=== PATIENT | female | born 2000 | race Caucasian/White ===

== ENCOUNTER → 2021-05-06 12:15 | Outpatient (BNVA) | payer BC, SELFPAY | PROVIDERS: Visit Provider Registered Nurse Neonatal Intensive Care | DX: R05.9 Cough, unspecified (principal) | CPT/HCPCS: 87400 ==

== ENCOUNTER → 2021-09-09 13:30 | Outpatient (BNVA) | payer MEDICAID, SELFPAY | PROVIDERS: Visit Provider Nurse Practitioner Women's Health | DX: N92.6 Irregular menstruation, unspecified (principal) | CPT/HCPCS: 81025 ==

== ENCOUNTER → 2021-10-16 14:02 | Outpatient (BNVA) | payer MEDICAID, SELFPAY | PROVIDERS: Visit Provider Obstetrics & Gynecology | DX: Z34.00 Encounter for supervision of normal first pregnancy, unspecified trimester (principal); G43.909 Migraine, unspecified, not intractable, without status migrainosus | CPT/HCPCS: 80307; 81000; 87086 ==

== ENCOUNTER → 2021-10-29 10:57 | Outpatient (BNVA) | payer MEDICAID, SELFPAY | PROVIDERS: Visit Provider Obstetrics & Gynecology | DX: Z34.00 Encounter for supervision of normal first pregnancy, unspecified trimester (principal) | CPT/HCPCS: 81000; 84443; 85027; 86592; 86762; 86803; 86850; 86900; 87340; 87491; 87591; 87661; 87806 ==

== ENCOUNTER → 2022-01-16 15:01 | Outpatient (BNVA) | payer MEDICAID, SELFPAY | PROVIDERS: Visit Provider Obstetrics & Gynecology | DX: Z34.00 Encounter for supervision of normal first pregnancy, unspecified trimester (principal); Z3A.00 Weeks of gestation of pregnancy not specified; R82.90 Unspecified abnormal findings in urine | CPT/HCPCS: 87077; 87086; 87184 ==

== ENCOUNTER → 2022-02-02 10:00 | Outpatient (BNVA) | payer MEDICAID, SELFPAY | PROVIDERS: Visit Provider Obstetrics & Gynecology | DX: Z34.00 Encounter for supervision of normal first pregnancy, unspecified trimester (principal) | CPT/HCPCS: 82950 ==

== ENCOUNTER → 2022-02-18 13:50 | Outpatient (BNVA) | payer MEDICAID, SELFPAY | PROVIDERS: Visit Provider Obstetrics & Gynecology | DX: Z34.00 Encounter for supervision of normal first pregnancy, unspecified trimester (principal) | CPT/HCPCS: 81000; 87086 ==

== ENCOUNTER → 2022-03-04 10:21 | Outpatient (BNVA) | payer MEDICAID, SELFPAY | PROVIDERS: Visit Provider Obstetrics & Gynecology | DX: Z34.00 Encounter for supervision of normal first pregnancy, unspecified trimester (principal) | CPT/HCPCS: 81000; 85025; 87086 ==

== ENCOUNTER 2022-03-19 13:10 | Inpatient (IN) | payer MEDICAID, SELFPAY ==
[2022-03-19] VITALS (16 sets, daily range): BP systolic 133–152; BP diastolic 76–99; PULSE 69–96; RESP 14–17; TEMP 36.7; BMI 38.5
[2022-03-19 12:32] LABS: Basophils % 0.2 %; Eosinophils # 0.1 10^3/uL (0.0-0.8); Eosinophils % 0.5 %; Hematocrit 33.4 % (37.0-47.0); Hemoglobin 10.4 g/dL (11.5-15.3); Lymphocytes # 1.9 10^3/uL (0.8-4.8); Lymphocytes % 19.5 %; Mean Corpuscular HGB Conc 31.1 g/dL (30.0-36.0); Mean Corpuscular Hemoglobin 26.1 pg (28.0-34.0); Mean Corpuscular Volume 83.7 fl (81-99); Mean Platelet Volume 11.9 fL (7.4-10.4); Monocytes # 0.5 10^3/uL (0.2-0.9); Monocytes % 5.4 %; Neutrophils # 7.04 10^3/uL (1.8-7.7); Neutrophils % 74.2 %; Nucleated Red Blood Cells % 0 %; Platelet Count 284 10^3/cmm (130-400); Red Blood Count 3.99 10^6/uL (4.1-5.3); Red Cell Distribution Width 14.1 % (12.1-15.1); White Blood Count 9.5 10^3/uL (4.0-10.0)
[2022-03-19 12:51] LABS: Alanine Aminotransferase 7 U/L (0-33); Albumin Level 3.3 g/dL (3.5-5.2); Alkaline Phosphatase 80 U/L (35-105); Anion Gap 13.6 (5-19); Aspartate Amino Transferase 27 U/L (0-32); Blood Urea Nitrogen 8 mg/dL (6-20); Calcium 8.6 mg/dL (8.5-10.5); Carbon Dioxide 21 mmol/L (22-29); Chloride 103 mmol/L (98-107); Globulin 2.9 g/dL (1.3-4.6); Glomerular Filtration Rate 155.7 mL/min (90-130); Glucose 114 mg/dL (65-115); Osmolality Calculated 275 mOsm/kg (285-295); Potassium 4.6 mmol/L (3.5-5.1); Sodium 133 mmol/L (136-145); Total Bilirubin 0.2 mg/dL (0.15-1.2); Total Protein 6.2 g/dL (6.6-8.7); Uric Acid 4.8 mg/dL (2.4-5.7)
[2022-03-19 13:01] LABS: Urine Creatinine 299 mg/dL (28-217)
[2022-03-19 13:02] LABS: UPRO/UCREAT Ratio 0.45 mg/mg CR; Urine Protein Random 135 mg/dL
[2022-03-19 13:12] LABS: Bilirubin Urine Neg (Negative); Blood Urine Neg (Negative); Glucose Urine UA Norm (Normal); Ketones Urine 1+ (Negative); Leukocyte Esterase Urine Trace (Negative); Nitrate Urine Negative (Negative); Protein Urine 2+ (Negative); Urine Appearance Hazy (CLEAR); Urine Color Yellow (Yellow); Urobilinogen Urine Norm (Negative); pH Urine 5 (5-7)
[2022-03-19 13:13] LABS: Add Urine Microscopic? YES
[2022-03-19 13:14] LABS: RBC Urine 0-4 /hpf (0-2)
[2022-03-19 13:15] LABS: Bacteria Urine 2+ /hpf; Mucus Urine 2+ /hpf
[2022-03-19 13:16] LABS: Hyaline Casts Urine 0-4 /lpf
[2022-03-19 13:17] LABS: Coarse Granular Casts Urine 0-4 /lpf
[2022-03-19 13:18] LABS: Add Urine Culture? No
[2022-03-19] MEDS: lactated ringers 1,000 ML 999 ML IV (13:52)
[2022-03-19] MEDS: betamethasone susp 6 mg/mL 5 mL 12 MG IM (13:55)
--- NOTE | 2022-03-19 14:57 | PM.OPHPUD ---
Labor & Delivery H&P Update Date of Procedure: March 19, 2022 Date H&P Performed: 03/19/22 H&P update information: I have reviewed H&P completed within last 30 days, I have examined patient prior to procedure and Changes to prior documentation as noted here Changes to previous documentation: The patient had mildly elevated blood pressures in the clinic. She was sent to labor and delivery. urine/protein creatinine ratio is elevated at 0.45. All other labs are normal. The patient will be admitted for steroids, blood pressure monitoring and monitoring. Plan to repeat labs in the morning. She doesn't meet the criteria for severe symptoms. Admission Diagnosis: Related Problem List Diagnoses (1) Elevated blood pressure reading: betamethasone today and repeat in 24 hours monitor blood pressure will reassess in AM (2) Proteinuria affecting :
[2022-03-19] MEDS: dextrose 5%-lactated ringers 1,000 ML 100 ML IV (15:00)
[2022-03-19] MEDS: acetaminophen 325 mg Tablet 650 MG PO (19:50)
[2022-03-20] VITALS (57 sets, daily range): BP systolic 129–166; BP diastolic 73–96; PULSE 75–99; RESP 14–17; TEMP 36.9
[2022-03-20] MEDS: dextrose 5%-lactated ringers 1,000 ML 100 ML IV ×2 (01:01→13:07)
[2022-03-20 05:09] LABS: Hematocrit 31.4 % (37.0-47.0); Hemoglobin 9.6 g/dL (11.5-15.3); Lymphocytes # 0.9 10^3/uL (0.8-4.8); Lymphocytes % 9.5 %; Mean Corpuscular HGB Conc 30.6 g/dL (30.0-36.0); Mean Corpuscular Hemoglobin 25.5 pg (28.0-34.0); Mean Corpuscular Volume 83.5 fl (81-99); Mean Platelet Volume 11.9 fL (7.4-10.4); Monocytes # 0.2 10^3/uL (0.2-0.9); Monocytes % 2.4 %; Neutrophils # 8.35 10^3/uL (1.8-7.7); Neutrophils % 87.4 %; Nucleated Red Blood Cells % 0 %; Platelet Count 252 10^3/cmm (130-400); Red Blood Count 3.76 10^6/uL (4.1-5.3); Red Cell Distribution Width 14.1 % (12.1-15.1); White Blood Count 9.6 10^3/uL (4.0-10.0)
[2022-03-20 05:30] LABS: Alanine Aminotransferase < 5 U/L (0-33); Albumin Level 3.1 g/dL (3.5-5.2); Alkaline Phosphatase 72 U/L (35-105); Anion Gap 17.3 (5-19); Aspartate Amino Transferase 10 U/L (0-32); Blood Urea Nitrogen 10 mg/dL (6-20); Calcium 8.8 mg/dL (8.5-10.5); Carbon Dioxide 18 mmol/L (22-29); Chloride 104 mmol/L (98-107); Globulin 2.8 g/dL (1.3-4.6); Glomerular Filtration Rate 155.7 mL/min (90-130); Glucose 159 mg/dL (65-115); Osmolality Calculated 282 mOsm/kg (285-295); Potassium 4.3 mmol/L (3.5-5.1); Sodium 135 mmol/L (136-145); Total Bilirubin 0.2 mg/dL (0.15-1.2); Total Protein 5.9 g/dL (6.6-8.7); Uric Acid 4.7 mg/dL (2.4-5.7)
[2022-03-20 05:31] LABS: Urine Creatinine 154 mg/dL (28-217)
[2022-03-20 05:49] LABS: UPRO/UCREAT Ratio 1.96 mg/mg CR; Urine Protein Random 302 mg/dL
[2022-03-20 06:02] LABS: Add Urine Microscopic? YES; Bilirubin Urine Neg (Negative); Blood Urine Neg (Negative); Glucose Urine UA Trace (Normal); Ketones Urine Negative (Negative); Leukocyte Esterase Urine Negative (Negative); Nitrate Urine Negative (Negative); Protein Urine 3+ (Negative); RBC Urine 0-4 /hpf (0-2); Specific Gravity, Urine 1.015 (1.005-1.030); Squamous Epithelial Cell Urine 0-4 /hpf (0-5); Urine Appearance Clear (CLEAR); Urine Color Yellow (Yellow); Urobilinogen Urine Norm (Negative); WBC Urine 0-4 /hpf (0-5); pH Urine 7 (5-7)
[2022-03-20 06:03] LABS: Add Urine Culture? No; Bacteria Urine 1+ /hpf; Mucus Urine 2+ /hpf
[2022-03-20] MEDS: ampicillin 2,000 MG in sodium chloride 0.9% (plus) 50 ML 100 MG IV (09:18)
[2022-03-20] MEDS: magnesium sulfate premix 4 GM/100 ML PREMIX IV (09:19)
[2022-03-20] MEDS: magnesium sulfate premix 20 GM/500 ML BAG IV ×2 (09:38→19:22)
[2022-03-20] MEDS: miSOPROStol 100 mcg tablet 25 MCG VAGINAL ×3 (10:02→21:02)
[2022-03-20] MEDS: betamethasone susp 6 mg/mL 5 mL 12 MG IM (13:28)
[2022-03-20] MEDS: ampicillin 1,000 MG in sodium chloride 0.9% (plus) 50 ML 100 MG IV ×3 (13:28→21:34)
[2022-03-20 17:14] LABS: Magnesium Level (OB Only) 4.6 mg/dL (5.0-7.5)
--- NOTE | 2022-03-20 18:53 | P.PN_ITS ---
Subjective Subjective: Emely is a 22 y/o @ 35.4 weeks by LMP consistent with 13-week ultrasound with a due date of 04/20/2022. Her is complicated by preeclampsia with intermittent severe features, anemia. The patient currently feels well overall. She has a mild headache but no significant nausea or flashes of light currently. She denies any chest pains and shortness of breath. She has had no leakage of fluid or vaginal bleeding. Vitals/I&O/Wt Last Vital Signs Temp 98.5 F 03/20/22 17:45 Pulse 90 03/20/22 18:36 Resp 17 03/20/22 17:45 BP 143/84 03/20/22 18:36 O2 Del Method 03/20/22 17:45 03/20/22 03/20/22 03/20/22 06:59 14:59 22:59 Intake Total 1000 / 2000 1000 / 1000 Output Total 340 / 340 293 / 633 Balance 1000 / 2000 660 / 660 -293 / 367 Weight last 48 hrs Weight 211 lb Physical Exam Narrative: General: Alert and oriented x3 Eyes: Pupils equal round and reactive to light and accommodation Mouth: Mucous membranes moist, pharynx non-erythematous Cardiac: Regular rate and rhythm without murmurs Lungs: Clear to auscultation bilaterally without wheezes, crackles or rhonchi Abdomen: Soft, non-tender, fundus consistent with gestational age Extremities: +3 pitting edema in the bilateral lower extremities. Very brisk deep tendon reflexes in the lower extremities. Urinary Catheter Management: Latham: Cath Placed During This Visit: yes Reason for Continuing Indwelling Catheter: Accurate Measurement of Urinary Output in Critically Ill Patients Urinary Catheter Date of Insertion: 03/20/22 Urinary Catheter Time of Insertion: 10:10 Data 03/20/22 04:55 03/20/22 04:55 A&P Assessment and plan (1) Severe preeclampsia: The patient's blood pressures are currently in the 140s over 80s. She is on IV magnesium at 2 g/h. Her reflexes continue to be very brisk. She has a mild h eadache but does not have other flashes of light or significant nausea at this point. I took over for the patient in the interim and Dr. Ware will take over this evening. The patient has received 2 doses of Cytotec. Currently her contractions are every 2 to 6 minutes. heart tones are in the mid 130s with moderate variability good accelerations with a category 1 tracing. The patient has received 2 doses of betamethasone. The patient is GBS unknown and has been started on ampicillin for prophylaxis. We will employ the antihypertensive protocol if her pressures become severe. She had one in the 160s systolic while having a blood draw that improved on its own. (2) Supervision of high risk , unspecified, third trimester: Upon review of the chart, it appears that the ultrasound she had at 7 weeks possibly did not have an accurate crown-rump length. The follow-up ultrasound at 13 weeks was noted to be the dating ultrasound. It was 8 days different than the LMP which would not be a significant difference so dating is currently by the LMP of 07/14/21. This gives a due date of April 20, 2022 placing the patient at 35.4 weeks gestation today. Attestations Medical Necessity Statement*: The patient will be here for greater than 2 midnights due to routine intrapartum and management of labor and delivery. Coding Level of Care Code Acute Code for Chg Fwd Diagnoses Severe preeclampsia O14.10 Supervision of high risk , unspecified, third trimester O09.93
[2022-03-20 22:22] LABS: Magnesium Level (OB Only) 5.9 mg/dL (5.0-7.5)
[2022-03-21] VITALS (96 sets, daily range): BP systolic 126–167; BP diastolic 67–93; PULSE 73–116; RESP 16–18; TEMP 36.8–36.9; O2SAT 92–100
[2022-03-21] MEDS: ampicillin 1,000 MG in sodium chloride 0.9% (plus) 50 ML 100 MG IV ×2 (01:03→05:40)
[2022-03-21] MEDS: magnesium sulfate premix 20 GM/500 ML BAG IV (04:21)
[2022-03-21] MEDS: dextrose 5%-lactated ringers 1,000 ML 125 ML IV ×2 (04:22→17:58)
[2022-03-21] MEDS: fentaNYL 50 mcg/mL INJ 2mL IVP ×2 (04:28→05:56)
--- NOTE | 2022-03-21 04:34 | P.PN_ITS ---
UNDERWRITING SERVICE REPRESENTATIVE Subjective Subjective: Interval history: March 21, 2022, 404 Patient admitted for IOL at 35 w 4 d for preE Had already received 4 doses of cytotec Feeling mild-moderate UCs No c/o.? no headaches, blurry vision Feeling mild weakness from MgSO4 On 2 gms of MgSO4 Exam:??? awake, alert, appropriate ? BPs?? 141 / 83 ? Urine output adequate ? Cervix:?? 2 cm / 75% / -2 / posterior ? AROM? -? clear fluid ? IUPC placed heart tracing? -? reassuring.? + good variability A/P: 35 w 5 d Admitted for IOL for preE Plan start Pitocin augmentation Labor: Station: -3 Amniotic Membrane Status: Ruptured Monitor Mode: External Contraction Pattern: Irregular Status: Category I Vitals/I&O/Wt Last Vital Signs Temp 98.5 F 03/20/22 17:45 Pulse 97 03/21/22 04:17 Resp 16 03/21/22 04:28 BP 157/90 03/21/22 04:17 O2 Del Method 03/20/22 17:45 03/20/22 03/20/22 03/21/22 14:59 22:59 06:59 Intake Total 1000 / 1000 100 / 1100 449.167 / 1549.167 Output Total 340 / 340 823 / 1163 255 / 1418 Balance 660 / 660 -723 / -63 194.167 / 131.167 Weight last 48 hrs Weight 211 lb Physical Exam Urinary Catheter Management: Latham: Cath Placed During This Visit: yes Reason for Continuing Indwelling Catheter: Accurate Measurement of Urinary Output in Critically Ill Patients Urinary Catheter Date of Insertion: 03/20/22 Urinary Catheter Time of Insertion: 10:10 Data 03/20/22 04:55 03/20/22 04:55 Attestations Medical Necessity Statement*: patient admitted for induction of labor Time Spent in Patient Care: 15 minutes Coding Level of Care Code Acute Code for Chg Fwd
--- NOTE | 2022-03-21 07:32 | PM.DELIVERY ---
Delivery Note: Date of delivery: March 21, 2022 Pre-delivery diagnoses: 35 w 5 d pre-eclampsia induction of labor Post-delivery diagnoses: same, delivered Procedure: vaginal delivery Delivering Physician: Paul Ware M.D. Findings: March 21, 2022, 07 DELIVERY NOTE , female Normal placenta and cord Cord gases and blood obtained Small second-degree perineal laceration repaired Lidocaine 1% 8 cc given subcutaneously No complications EBL:? 300 cc Post-Delivery Status: Good History History History 1 Term Miscarriages/Ectopic Living Children A&P Assessment and plan (1) Vaginal delivery: Plan s/p care Coding Level of Care Code Acute Code for Chg Fwd Diagnoses Vaginal delivery O80
[2022-03-21] MEDS: ibuprofen 800 mg tablet PO ×2 (09:15→15:44)
[2022-03-21] MEDS: prenatal vitamin Capsule 1 CAP PO (09:16)
[2022-03-21] MEDS: docusate sodium 100 mg Capsule PO ×2 (09:16→17:56)
[2022-03-21] MEDS: benzocaine-menthol 78 gm Canister 1 SPRAY TOPICAL (09:22)
[2022-03-21 23:32] LABS: Hematocrit 27.6 % (37.0-47.0); Hemoglobin 8.5 g/dL (11.5-15.3); Mean Corpuscular HGB Conc 30.8 g/dL (30.0-36.0); Mean Corpuscular Hemoglobin 25.9 pg (28.0-34.0); Mean Corpuscular Volume 84.1 fl (81-99); Mean Platelet Volume 11.8 fL (7.4-10.4); Platelet Count 265 10^3/cmm (130-400); Red Blood Count 3.28 10^6/uL (4.1-5.3); Red Cell Distribution Width 14.6 % (12.1-15.1); White Blood Count 12.7 10^3/uL (4.0-10.0)
[2022-03-22] VITALS (16 sets, daily range): BP systolic 127–163; BP diastolic 67–84; PULSE 81–107; RESP 15–16; TEMP 36.2–37.2
[2022-03-22] MEDS: magnesium sulfate premix 20 GM/500 ML BAG IV (00:47)
[2022-03-22] MEDS: ibuprofen 800 mg tablet PO ×3 (10:11→21:03)
[2022-03-22] MEDS: docusate sodium 100 mg Capsule PO ×2 (10:11→17:47)
[2022-03-22] MEDS: prenatal vitamin Capsule 1 CAP PO (10:11)
[2022-03-23 01:56] LABS: Glucose Point of Care 58 mg/dL (70-110)
[2022-03-23 04:00] VITALS: BP 138/79; BP 153/95; PULSE 75; PULSE 82
[2022-03-23 09:28] VITALS: BP 138/79; PULSE 101; TEMP 36.1
[2022-03-23] MEDS: prenatal vitamin Capsule 1 CAP PO (09:29)
[2022-03-23] MEDS: docusate sodium 100 mg Capsule PO (09:29)
[2022-03-23] MEDS: ibuprofen 800 mg tablet PO (09:29)
--- NOTE | 2022-03-23 12:00 | P.PN_ITS ---
DATA REDUCTION TECHNICIAN Subjective Subjective: Interval history: March 22, 2022, 1205 No c/o No pain, bleeding Normal lochia Eating, voiding, ambulating well Exam:? afebrile, VS normal ? Abd:? soft, nontender.? Fundus firm ? Ext:? normal A/P: PPD? #1? Doing well Continue care Labor: Station: 0 Amniotic Membrane Status: Ruptured Monitor Mode: Internal (IUPC) Contraction Pattern: Regular Uterine Tone Measurement: 15 Status: Category I Vitals/I&O/Wt Last Vital Signs Temp 97.0 F L 03/23/22 09:28 Pulse 101 H 03/23/22 09:28 Resp 15 03/22/22 22:34 BP 138/79 03/23/22 09:28 Pulse Ox 100 03/21/22 19:30 O2 Del Method 03/21/22 19:30 Physical Exam Urinary Catheter Management: [place]: Cath Placed During This Visit: yes, but has since been removed by the nurse Reason for Continuing Indwelling Catheter: Decision to DC Catheter Urinary Catheter Date of Insertion: 03/20/22 Urinary Catheter Time of Insertion: 10:10 Date Urinary Catheter Removed: 03/22/22 Time Urinary Catheter Discontinued: 09:45 Latham Latex: Cath Placed During This Visit: yes, but has since been removed by the nurse Reason for Continuing Indwelling Catheter: Decision to DC Catheter Urinary Catheter Date of Insertion: 03/21/22 Urinary Catheter Time of Insertion: 08:00 Date Urinary Catheter Removed: 03/22/22 Time Urinary Catheter Discontinued: 09:45 Data 03/21/22 23:20 03/20/22 04:55 A&P Assessment and plan (1) Vaginal delivery: Attestations Medical Necessity Statement*: patient s/p , care Coding Level of Care Code Acute Code for Chg Fwd Diagnoses Vaginal delivery O80
--- NOTE | 2022-03-23 12:02 | P.PN_ITS ---
MARKETING MANAGER HEALTH COMMUNICATIONS Subjective Subjective: Interval history: March 23, 2022, 1105 No c/o No pain, bleeding Eating, voiding, ambulating well Exam:? afebrile, VS? normal ?Abd:? soft, nontender ? Ext:? normal A/P: PPD #2 Doing well Plan discharge home Instructions/precautions given Continue FeSO4 1-2 tab PO daily f/u with Dr. Mccracken in two weeks Labor: Station: 0 Amniotic Membrane Status: Ruptured Monitor Mode: Internal (IUPC) Contraction Pattern: Regular Uterine Tone Measurement: 15 Status: Category I Vitals/I&O/Wt Last Vital Signs Temp 97.0 F L 03/23/22 09:28 Pulse 101 H 03/23/22 09:28 Resp 15 03/22/22 22:34 BP 138/79 03/23/22 09:28 Pulse Ox 100 03/21/22 19:30 O2 Del Method 03/21/22 19:30 Physical Exam Urinary Catheter Management: L[place]: Cath Placed During This Visit: yes, but has since been removed by the nurse Reason for Continuing Indwelling Catheter: Decision to DC Catheter Urinary Catheter Date of Insertion: 03/20/22 Urinary Catheter Time of Insertion: 10:10 Date Urinary Catheter Removed: 03/22/22 Time Urinary Catheter Discontinued: 09:45 L[place] Latex: Cath Placed During This Visit: yes, but has since been removed by the nurse Reason for Continuing Indwelling Catheter: Decision to DC Catheter Urinary Catheter Date of Insertion: 03/21/22 Urinary Catheter Time of Insertion: 08:00 Date Urinary Catheter Removed: 03/22/22 Time Urinary Catheter Discontinued: 09:45 Data 03/21/22 23:20 03/20/22 04:55 A&P Assessment and plan (1) Vaginal delivery: Attestations Medical Necessity Statement*: patient is PPD #2 , plan discharge home today Coding Level of Care Code Acute Code for Chg Fwd Diagnoses Vaginal delivery O80
--- NOTE | 2022-03-23 12:04 | P.DS_ITS ---
Discharge Providers CUSTOMER CONTACT REPRESENTATIVE Date of Admission: 03/20/22 07:52 Date of Discharge: 03/23/22 Attending Provider at Admission: Kristina Mccracken MD Attending Provider at Discharge: Kristina Mccracken MD Primary CUSTOMER CONTACT REPRESENTATIVE: Shyam Mccracken MD Primary Care Provider: DOCTOR NOT ON STAFF Diagnoses at Discharge Discharge Diagnosis (1) Vaginal delivery: Status: Acute Reason for Visit Reason for Visit: Increased BP in office, PRE E workup Hospital Course Hospital Course patient with , small second-degree perineal laceration repair. Did well without any complications. Information Peripartum Data: Delivery Method: Vaginal Physical Exam Urinary Catheter Management: L[place]: Cath Placed During This Visit: yes, but has since been removed by the nurse Reason for Continuing Indwelling Catheter: Decision to DC Catheter Urinary Catheter Date of Insertion: 03/20/22 Urinary Catheter Time of Insertion: 10:10 Date Urinary Catheter Removed: 03/22/22 Time Urinary Catheter Discontinued: 09:45 [place] Latex: Cath Placed During This Visit: yes, but has since been removed by the nurse Reason for Continuing Indwelling Catheter: Decision to DC Catheter Urinary Catheter Date of Insertion: 03/21/22 Urinary Catheter Time of Insertion: 08:00 Date Urinary Catheter Removed: 03/22/22 Time Urinary Catheter Discontinued: 09:45 History History History 1 Term Miscarriages/Ectopic Living Children Discharge Data Studies Completed and Pending Laboratory Results WBC 12.7 10^3/uL (4.0-10.0) H 03/21/22 23:20 RBC 3.28 10^6/uL (4.1-5.3) L 03/21/22 23:20 Hgb 8.5 g/dL (11.5-15.3) L 03/21/22 23:20 Hct 27.6 % (37.0-47.0) L 03/21/22 23:20 MCV 84.1 fl (81-99) 03/21/22 23:20 MCH 25.9 pg (28.0-34.0) L 03/21/22 23:20 MCHC 30.8 g/dL (30.0-36.0) 03/21/22 23:20 RDW 14.6 % (12.1-15.1) 03/21/22 23:20 Plt Count 265 10^3/cmm (130-400) 03/21/22 23:20 MPV 11.8 fL (7.4-10.4) H 03/21/22 23:20 Neut % (Auto) 87.4 % 03/20/22 04:55 Lymph % (Auto) 9.5 % 03/20/22 04:55 [place] % (Auto) 2.4 % 03/20/22 04:55 Eos % (Auto) 0.0 % 03/20/22 04:55 Baso % (Auto) 0.0 % 03/20/22 04:55 Neut # (Auto) 8.35 10^3/uL (1.8-7.7) H 03/20/22 04:55 Lymph # (Auto) 0.9 10^3/uL (0.8-4.8) 03/20/22 04:55 [place] # (Auto) 0.2 10^3/uL (0.2-0.9) 03/20/22 04:55 Eos # (Auto) 0.0 10^3/uL (0.0-0.8) 03/20/22 04:55 Baso # (Auto) 0.0 10^3/uL (0.0-0.1) 03/20/22 04:55 Nucleated RBC % (auto) 0 % 03/20/22 04:55 Nucleated RBCs # 0.0 /100WBC 03/20/22 04:55 Sodium 135 mmol/L (136-145) L 03/20/22 04:55 Potassium 4.3 mmol/L (3.5-5.1) 03/20/22 04:55 Chloride 104 mmol/L (98-107) 03/20/22 04:55 Carbon Dioxide 18 mmol/L (22-29) L 03/20/22 04:55 Anion Gap 17.3 (5-19) 03/20/22 04:55 BUN 10 mg/dL (6-20) 03/20/22 04:55 Creatinine 0.5 mg/dL (0.5-0.9) 03/20/22 04:55 GFR Calculation 155.7 mL/min (90-130) H 03/20/22 04:55 Glucose 159 mg/dL (65-115) H 03/20/22 04:55 POC Glucose 58 mg/dL (70-110) L 03/23/22 01:45 Calculated Osmolality 282 mOsm/kg (285-295) L 03/20/22 04:55 Uric Acid 4.7 mg/dL (2.4-5.7) 03/20/22 04:55 Calcium 8.8 mg/dL (8.5-10.5) 03/20/22 04:55 Magnesium 5.9 mg/dL (5.0-7.5) 03/20/22 21:50 Total Bilirubin 0.2 mg/dL (0.15-1.2) 03/20/22 04:55 AST 10 U/L (0-32) 03/20/22 04:55 ALT < 5 U/L (0-33) 03/20/22 04:55 Alkaline Phosphatase 72 U/L (35-105) 03/20/22 04:55 Total Protein 5.9 g/dL (6.6-8.7) L 03/20/22 04:55 Albumin 3.1 g/dL (3.5-5.2) L 03/20/22 04:55 Globulin 2.8 g/dL (1.3-4.6) 03/20/22 04:55 Urine Color Yellow (Yellow) 03/20/22 05:00 Urine Appearance Clear (CLEAR) 03/20/22 05:00 Urine pH 7 (5-7) 03/20/22 05:00 Ur Specific [place] 1.015 (1.005-1.030) 03/20/22 05:00 Urine Protein 3+ (Negative) H 03/20/22 05:00 Urine Glucose (UA) Trace (Normal) H 03/20/22 05:00 Urine Ketones Negative (Negative) 03/20/22 05:00 Urine Blood Neg (Negative) 03/20/22 05:00 Urine Nitrate Negative (Negative) 03/20/22 05:00 Urine Bilirubin Neg (Negative) 03/20/22 05:00 Urine Urobilinogen Norm mg/dL (Negative) 03/20/22 05:00 Ur Leukocyte Esterase Negative (Negative) 03/20/22 05:00 Urine RBC 0-4 /hpf (0-2) H 03/20/22 05:00 Urine WBC 0-4 /hpf (0-5) H 03/20/22 05:00 Ur Squamous Epith Cells 0-4 /hpf (0-5) H 03/20/22 05:00 Amorphous Sediment Not Reportable 03/20/22 05:00 Urine Bacteria 1+ /hpf (NONE) H 03/20/22 05:00 Hyaline Casts 0-4 /lpf H 03/19/22 12:05 Coarse Granular Casts 0-4 /lpf H 03/19/22 12:05 Urine Mucus 2+ /hpf 03/20/22 05:00 U Random Total Protein 302 mg/dL 03/20/22 05:00 Urine Creatinine 154 mg/dL (28-217) 03/20/22 05:00 Protein/Creatinin Ratio 1.96 mg/mg CR 03/20/22 05:00 Procedures Performed Induction of Labor Vaginal delivery repair of second-degree perineal laceration Vitals Last Vital Signs Temp 97.0 F L 03/23/22 09:28 Pulse 101 H 03/23/22 09:28 Resp 15 03/22/22 22:34 BP 138/79 03/23/22 09:28 Pulse Ox 100 03/21/22 19:30 O2 Del Method 03/21/22 19:30 Discharge Plan Discharge Patient Disposition: Home Condition: Stable Prescriptions: Continued acetaminophen [Tylenol] 325 mg capsule 325 mg PO QID PRN (Reason: Pain) Gummies 400 mcg-35 mg- 25 mg-5 mg tablet,chewable 1 tab PO DAILY Discontinued atenolol 25 mg tablet 25 mg PO DAILY Qty: 90 3RF Discharge Orders: Discharge Order (Routine); Ordered 03/23/22 Ordered By: Paul Ware Referrals: Kristina Mccracken MD [Physician] - 04/09/22 2:15 pm (* Your 2 week appointment is with Dr. Mccracken on 04/09/2022 at 2:15pm) Discharge Diet: Regular Discharge Activity: Increase activity as tolerated Patient Instructions: Depression (DC), Bleeding (DC), Preeclampsia and Eclampsia After Delivery (GEN), OB Discharge Report, OB Food/Drug Interaction Guide, Opioid Safety, OB Home Care, OB Proud Parent Packet Discharge Attestations CUSTOMER CONTACT REPRESENTATIVE Time Spent in Discharge Care*: less than 30 min Coding Level of Care Code Acute Code for Chg Fwd Diagnoses Vaginal delivery O80
[2022-03-23 12:30] VITALS: BP 148/79; PULSE 84
[2022-03-23 12:31] VITALS: TEMP 36.7
[2022-03-23 12:37] VITALS: BP 148/79; PULSE 84; RESP 16; TEMP 36.7
== END 2022-03-23 12:40 | disposition home or self-care (01) | DRG 807 ==
PROVIDERS: Family Medicine; Obstetrics & Gynecology; Admitting Provider Obstetrics & Gynecology; Visit Provider Obstetrics & Gynecology
DX: O14.14 Severe pre-eclampsia complicating childbirth (principal); Z37.0 Single live birth; O99.02 Anemia complicating childbirth; D64.9 Anemia, unspecified; O70.1 Second degree perineal laceration during delivery; Z3A.35 35 weeks gestation of pregnancy
CPT/HCPCS: 12345; 36415; 36416; 51702; 59025; 59409; 80053; 81001; 82570; 82962; 83735; 84156; 84550; 85025; 85027; 96372; 96374; 96376; 99211; G0378; J0290; J0702; J3010; J3475; J7120; J7121

== ENCOUNTER 2022-03-23 21:01 | Observation (INO) | payer MEDICAID, SELFPAY ==
[2022-03-23] VITALS (16 sets, daily range): BP systolic 136–173; BP diastolic 67–100; PULSE 68–100; RESP 16
[2022-03-23] MEDS: labetalol 5 mg/mL SDV 20mL 20 MG IVP (21:15)
[2022-03-23 21:32] LABS: Alanine Aminotransferase 8 U/L (0-33); Albumin Level 3.1 g/dL (3.5-5.2); Alkaline Phosphatase 59 U/L (35-105); Anion Gap 14.3 (5-19); Aspartate Amino Transferase 11 U/L (0-32); Blood Urea Nitrogen 11 mg/dL (6-20); Calcium 8.2 mg/dL (8.5-10.5); Carbon Dioxide 22 mmol/L (22-29); Chloride 103 mmol/L (98-107); Globulin 2.4 g/dL (1.3-4.6); Glomerular Filtration Rate 155.7 mL/min (90-130); Glucose 84 mg/dL (65-115); Osmolality Calculated 279 mOsm/kg (285-295); Potassium 4.3 mmol/L (3.5-5.1); Sodium 135 mmol/L (136-145); Total Bilirubin 0.2 mg/dL (0.15-1.2); Total Protein 5.5 g/dL (6.6-8.7); Uric Acid 5.3 mg/dL (2.4-5.7)
[2022-03-23 21:35] LABS: Urine Creatinine 17 mg/dL (28-217); Urine Protein Random 6 mg/dL
[2022-03-23 21:38] LABS: Basophils % 0.2 %; Eosinophils # 0.3 10^3/uL (0.0-0.8); Eosinophils % 2.2 %; Hematocrit 26.7 % (37.0-47.0); Hemoglobin 8.1 g/dL (11.5-15.3); Lymphocytes # 2.9 10^3/uL (0.8-4.8); Lymphocytes % 24.9 %; Mean Corpuscular HGB Conc 30.3 g/dL (30.0-36.0); Mean Corpuscular Hemoglobin 25.6 pg (28.0-34.0); Mean Corpuscular Volume 84.2 fl (81-99); Mean Platelet Volume 11.5 fL (7.4-10.4); Monocytes # 0.6 10^3/uL (0.2-0.9); Monocytes % 5.3 %; Neutrophils % 66.9 %; Nucleated Red Blood Cells % 0 %; Platelet Count 251 10^3/cmm (130-400); Red Blood Count 3.17 10^6/uL (4.1-5.3); Red Cell Distribution Width 14.6 % (12.1-15.1); White Blood Count 11.7 10^3/uL (4.0-10.0)
[2022-03-23 21:41] LABS: UPRO/UCREAT Ratio 0.35 mg/mg CR
[2022-03-23] MEDS: labetalol 5 mg/mL SDV 20mL 40 MG IVP (21:50)
[2022-03-23 22:06] LABS: Add Urine Microscopic? YES; Bilirubin Urine Neg (Negative); Blood Urine 2+ (Negative); Glucose Urine UA Norm (Normal); Ketones Urine Negative (Negative); Leukocyte Esterase Urine Negative (Negative); Nitrate Urine Negative (Negative); Protein Urine Neg (Negative); RBC Urine 0-4 /hpf (0-2); Sulfosalicylic Acid Urine Negative (Negative); Urine Appearance Clear (CLEAR); Urine Color Colorless (Yellow); Urobilinogen Urine Norm (Negative); pH Urine 8 (5-7)
[2022-03-23 22:07] LABS: Add Urine Culture? No; Mucus Urine N /hpf; Other Crystals Urine N /hpf; Renal Epithelial Cells Urine N /hpf; Squamous Epithelial Cell Urine 0-4 /hpf (0-5); Uric Acid Crystals Urine N /hpf
[2022-03-24] VITALS (89 sets, daily range): BP systolic 120–199; BP diastolic 58–120; PULSE 68–116; RESP 18; TEMP 36.8
--- NOTE | 2022-03-24 01:27 | PC.NURSE ---
Pt in nursery at this time with baby.
[2022-03-24] MEDS: acetaminophen 500 mg Tablet 1000 MG PO (02:16)
--- NOTE | 2022-03-24 09:18 | PC.NURSE ---
Patient stated BP cuff was slid down over her elbow and wants it retaken
[2022-03-24] MEDS: labetalol 5 mg/mL SDV 20mL 20 MG IVP ×2 (09:49→16:34)
[2022-03-24] MEDS: labetalol 5 mg/mL SDV 20mL 40 MG IVP ×3 (10:10→18:14)
[2022-03-24] MEDS: atenolol 50 mg Tablet 25 MG PO (10:35)
--- NOTE | 2022-03-24 17:57 | PM.PN ---
Subjective Subjective: Mrs. Nino 22 y/o s/p with elevated BP in the severe preeclampsia range. Vitals/I&O/Wt Last Vital Signs Pulse 76 03/24/22 17:36 Resp 16 03/23/22 20:48 BP 170/96 03/24/22 17:36 03/24/22 03/24/22 03/24/22 06:59 14:59 22:59 Intake Total 500 / 500 Balance 500 / 500 Physical Exam Narrative: GA; alert and oriented x 3 HEENT: normal Breasts: engorged Nipples - skin intact Lungs; clear to auscultation Heart: regular rhythm, no murmurs. Abd: Appropriately tender. BS+. Uterine fundus below umbilicus. No Fundal Tenderness. Perineum: normal lochia. Extremities: no edema, no cyanosis, no tenderness. Data 03/23/22 21:00 03/23/22 21:00 A&P Assessment and plan (1) Severe preeclampsia: Mrs. Nino s/p continue with severe preeclampsia, after MgSO4. She was started on Labetalol PO. Attestations Medical Necessity Statement*: In my professional opinion per admitting diagnosis Coding Level of Care Code Acute Code for Chg Fwd Diagnoses Severe preeclampsia O14.10
[2022-03-24] MEDS: labetalol 200 mg Tablet 100 MG PO (18:04)
[2022-03-24] MEDS: hyDRALAzine 20 mg/mL INJ 1 mL 5 MG IVP (20:34)
[2022-03-25] VITALS (15 sets, daily range): BP systolic 121–187; BP diastolic 64–107; PULSE 76–97; RESP 17–18; TEMP 36.6–37.2
[2022-03-25] MEDS: acetaminophen 500 mg Tablet 1000 MG PO ×2 (00:48→07:47)
--- NOTE | 2022-03-25 02:52 | PC.NURSE ---
03/25/2022 at 0114 BP unwitnessed, patient states she was laying on cuff. RN readjusted cuff and retook, following BP wnl. Will continue to monitor the patient.
[2022-03-25] MEDS: labetalol 200 mg Tablet 100 MG PO (07:47)
--- NOTE | 2022-03-25 08:47 | PC.NURSE ---
Discussed infant feeding plan with patient. Stated that she had planned to breastfeed however since is in NICU and taking formula well she will now formula feed. Educated on engorgement, clogged ducts and signs of mastitis. Recommended cool packs and continuing Ibuprofen for engorgement, expression of milk only to the point of comfort. Encouraged patient to seek out support resources for emotional support.
--- NOTE | 2022-03-25 14:16 | PM.OBGYDC ---
Discharge Providers LIVING SPECIALIST Date of Admission: 03/23/22 21:01 Date of Discharge: 03/25/22 Attending Provider at Admission: Vincent Bishop MD Attending Provider at Discharge: Vincent Bishop MD Primary LIVING SPECIALIST: Dr. Mccracken Primary Care Provider: DOCTOR NOT ON STAFF Diagnoses at Discharge Discharge Diagnosis (1) Severe preeclampsia: Status: Acute Reason for Visit Reason for Visit: elevated bp; headache Hospital Course Hospital Course Mrs. Nino admitted for induction due to severe preeclampsia. Doing and observation after magnesium sulfate treatment and discharge. She complained of symptoms of severe preeclampsia with headaches and scotomata's. She was noticed to have elevated blood pressure in the severe range she was treated per protocol, then she was started on labetalol p.o. and she has been without severe elevated blood pressure for 12 hours. Patient was counseled regarding continue with blood pressure medication precautions to return to labor and delivery she was to experience symptoms of severe preeclampsia. She refers she plans to use contraception with the IUD at the visit. She was also advised regarding pelvic rest for 6 weeks (no sex, no tampons, no vaginal douches). Return to the emergency room if any fever, increased bleeding or pain. Physical Exam Narrative: GA; alert and oriented x 3 HEENT: normal Breasts: engorged Nipples - skin intact Lungs; clear to auscultation Heart: regular rhythm, no murmurs. Abd: Appropriately tender. BS+. Uterine fundus below umbilicus. No Fundal Tenderness. Perineum: normal lochia. Extremities: no edema, no cyanosis, no tenderness. History History History 1 Term Miscarriages/Ectopic Living Children Discharge Data Studies Completed and Pending Laboratory Results WBC 11.7 10^3/uL (4.0-10.0) H 03/23/22 21:00 RBC 3.17 10^6/uL (4.1-5.3) L 03/23/22 21:00 Hgb 8.1 g/dL (11.5-15.3) L 03/23/22 21:00 Hct 26.7 % (37.0-47.0) L 03/23/22 21:00 MCV 84.2 fl (81-99) 03/23/22 21:00 MCH 25.6 pg (28.0-34.0) L 03/23/22 21:00 MCHC 30.3 g/dL (30.0-36.0) 03/23/22 21:00 RDW 14.6 % (12.1-15.1) 03/23/22 21:00 Plt Count 251 10^3/cmm (130-400) 03/23/22 21:00 MPV 11.5 fL (7.4-10.4) H 03/23/22 21:00 Neut % (Auto) 66.9 % 03/23/22 21:00 Lymph % (Auto) 24.9 % 03/23/22 21:00 [place] % (Auto) 5.3 % 03/23/22 21:00 Eos % (Auto) 2.2 % 03/23/22 21:00 Baso % (Auto) 0.2 % 03/23/22 21:00 Neut # (Auto) 7.80 10^3/uL (1.8-7.7) H 03/23/22 21:00 Lymph # (Auto) 2.9 10^3/uL (0.8-4.8) 03/23/22 21:00 [place] # (Auto) 0.6 10^3/uL (0.2-0.9) 03/23/22 21:00 Eos # (Auto) 0.3 10^3/uL (0.0-0.8) 03/23/22 21:00 Baso # (Auto) 0.0 10^3/uL (0.0-0.1) 03/23/22 21:00 Nucleated RBC % (auto) 0 % 03/23/22 21:00 Nucleated RBCs # 0.0 /100WBC 03/23/22 21:00 Sodium 135 mmol/L (136-145) L 03/23/22 21:00 Potassium 4.3 mmol/L (3.5-5.1) 03/23/22 21:00 Chloride 103 mmol/L (98-107) 03/23/22 21:00 Carbon Dioxide 22 mmol/L (22-29) 03/23/22 21:00 Anion Gap 14.3 (5-19) 03/23/22 21:00 BUN 11 mg/dL (6-20) 03/23/22 21:00 Creatinine 0.5 mg/dL (0.5-0.9) 03/23/22 21:00 GFR Calculation 155.7 mL/min (90-130) H 03/23/22 21:00 Glucose 84 mg/dL (65-115) 03/23/22 21:00 Calculated Osmolality 279 mOsm/kg (285-295) L 03/23/22 21:00 Uric Acid 5.3 mg/dL (2.4-5.7) 03/23/22 21:00 Calcium 8.2 mg/dL (8.5-10.5) L 03/23/22 21:00 Total Bilirubin 0.2 mg/dL (0.15-1.2) 03/23/22 21:00 AST 11 U/L (0-32) 03/23/22 21:00 ALT 8 U/L (0-33) 03/23/22 21:00 Alkaline Phosphatase 59 U/L (35-105) 03/23/22 21:00 Total Protein 5.5 g/dL (6.6-8.7) L 03/23/22 21:00 Albumin 3.1 g/dL (3.5-5.2) L 03/23/22 21:00 Globulin 2.4 g/dL (1.3-4.6) 03/23/22 21:00 Urine Color Colorless (Yellow) 03/23/22 21:00 Urine Appearance Clear (CLEAR) 03/23/22 21:00 Urine pH 8 (5-7) H 03/23/22 21:00 Ur Specific [place] 1.010 (1.005-1.030) 03/23/22 21:00 Urine Protein Neg (Negative) 03/23/22 21:00 Urine Glucose (UA) Norm (Normal) 03/23/22 21:00 Urine Ketones Negative (Negative) 03/23/22 21:00 Urine Blood 2+ (Negative) H 03/23/22 21:00 Urine Nitrate Negative (Negative) 03/23/22 21:00 Urine Bilirubin Neg (Negative) 03/23/22 21:00 Prot Sulfosalicylic Acd Negative (Negative) 03/23/22 21:00 Urine Urobilinogen Norm mg/dL (Negative) 03/23/22 21:00 Ur Leukocyte Esterase Negative (Negative) 03/23/22 21:00 Urine RBC 0-4 /hpf (0-2) H 03/23/22 21:00 Urine WBC None /hpf (0-5) 03/23/22 21:00 Ur Squamous Epith Cells 0-4 /hpf (0-5) H 03/23/22 21:00 Ur Renal Epithelial Cell N /hpf 03/23/22 21:00 Calcium Oxalate Crystal None /hpf 03/23/22 21:00 Uric Acid Crystals N /hpf 03/23/22 21:00 Triple Phos Crystals None /hpf 03/23/22 21:00 Other Crystals N /hpf 03/23/22 21:00 Amorphous Sediment Not Reportable 03/23/22 21:00 Urine Bacteria None /hpf (NONE) 03/23/22 21:00 Urine Mucus N /hpf 03/23/22 21:00 U Random Total Protein 6 mg/dL 03/23/22 21:00 Urine Creatinine 17 mg/dL (28-217) L 03/23/22 21:00 Protein/Creatinin Ratio 0.35 mg/mg CR 03/23/22 21:00 Vitals Last Vital Signs Temp 99.0 F 03/25/22 11:59 Pulse 97 03/25/22 11:59 Resp 18 03/25/22 05:30 BP 141/78 03/25/22 11:59 O2 Del Method 03/25/22 05:30 Discharge Plan Discharge Patient Disposition: Home Condition: Stable Prescriptions: New ibuprofen 800 mg tablet 800 mg PO TID PRN (Reason: pain) Qty: 60 0RF acetaminophen 325 mg capsule 325 mg PO Q4H PRN (Reason: fever or pain) Qty: 60 0RF docusate sodium [Colace] 100 mg capsule 100 mg PO BID Qty: 60 0RF ferrous sulfate [Iron (ferrous sulfate)] 325 mg (65 mg iron) tablet 325 mg PO BID Qty: 60 0RF labetalol 100 mg tablet 100 mg PO BID 30 Days Qty: 60 0RF Continued acetaminophen [Tylenol] 325 mg capsule 325 mg PO QID PRN (Reason: Pain) Gummies 400 mcg-35 mg- 25 mg-5 mg tablet,chewable 1 tab PO DAILY Discharge Orders: Discharge Order (Routine); Ordered 03/25/22 Ordered By: Vincent Bishop Referrals: Kristina Mccracken MD [Physician] - 1 week Discharge Diet: Low Salt Discharge Activity: Limit activity as instructed Patient Instructions: Opioid Safety Activity Restrictions/Additional Instructions: 1. Please call [facility] on next working day to make your post-operative appointment in 2 weeks. 2. Please stay home until you come back to the clinic on first post-operative check up. 3. Please follow instructions on your medications CAREFULLY. 4. If you have abdominal incision, do not cover it unless dressing is necessary because of drainage. OK to shower, but avoid bath. Leave steri-strips until they fall off. If they are still on one week after surgery, you may remove them. 5. If you had vaginal surgery or vaginal repair, Dr. Bishop may instruct you to take SITZ bath. 6. Yellow, blood tinged odorous vaginal discharge is usually normal after hysterectomy or vaginal surgeries. 7. No sexual intercourse, tampons, or douches until you are completely released from the post-operative care. 8. Avoid constipation by eating right and maybe using some Metamucil or Milk of Magnesia. 9. All prescription refills are given during the working hours. Please do no wait till it runs out. Call the clinic at [phone] before your medication runs out. The clinic will get in touch with your doctor to prescribe medications if necessary. 10. Please remain within 40 mile radius from our hospital because emergencies do happen now and then during the post-operative period. 11. If you have stairs at home, take one step at a time slowly and minimize the number of trips. It helps to stay in one floor for the next few days. No lifting except what you can lift by one hand until you are released from the post-operative care. 12. Driving is discouraged until you are well healed. It may be 3-4 weeks before you feel strong enough to drive. You should be able to turn and look through the rear window without pain and you should be able to push the brake pedal very hard without pain before you drive. No fast rules, but SAFETY should be your primary concern. DO NOT drive if you are on sedating medications such as narcotics. 13. Call the clinic (during working hours) to make urgent appointment or go to the Emergency room, if any of the following occurs: i. Vaginal bleeding becomes heavy, more than a period. ii. Incision becomes red and sore, or drains pus. iii. Your temperature is over 100.4 or you have chill. iv. IV site becomes red and swollen (a little ``knot?? is usually OK) v. Persistent nausea and vomiting vi. Persistent constipation or diarrhea vii. Rash or allergic reaction to medications. Discharge Attestations LIVING SPECIALIST Time Spent in Discharge Care*: greater than 30 min Coding Level of Care Code Acute Code for Chg Fwd Diagnoses Severe preeclampsia O14.10
== END 2022-03-25 16:55 | disposition home or self-care (01) ==
LOC: OPOB 03-24 07:58 → OBGYN 03-24 08:00
PROVIDERS: Admitting Provider Obstetrics & Gynecology; Visit Provider Obstetrics & Gynecology
DX: O14.15 Severe pre-eclampsia, complicating the puerperium (principal)
CPT/HCPCS: 36415; 80053; 81001; 82570; 84156; 84550; 85025; 96374; 96376; 99211; G0378; J0360; J3490

== ENCOUNTER → 2023-05-31 15:30 | Outpatient (BNVA) | payer MEDICAID, SELFPAY | PROVIDERS: Visit Provider Obstetrics & Gynecology | DX: Z34.00 Encounter for supervision of normal first pregnancy, unspecified trimester (principal); Z3A.00 Weeks of gestation of pregnancy not specified | CPT/HCPCS: 88175 ==